=== PATIENT | female | born 1985 | race African-American/Black ===

== ENCOUNTER 2021-03-04 10:00 | Emergency (ER) | payer BC, SELFPAY ==
[2021-03-04 10:14] VITALS: BP 136/82; PULSE 86; RESP 16; TEMP 37.8; O2SAT 100
--- NOTE | 2021-03-04 11:08 | ED.DENTAL ---
HPI - Dental/Oral General Chief complaint: Dental/Oral Stated complaint: swollen right side of face Time Seen by Provider: 03/04/21 10:55 Source: patient and RN notes reviewed Mode of arrival: ambulatory Limitations: no limitations History of Present Illness HPI Narrative: Patient presents today complaining of right upper dental pain and facial swelling. Pain started 4 days ago and swelling to the face started 2 days ago. States she knows she has 2 cracked teeth that need to be extracted. She did have an abscess to this area 3 weeks ago and was treated with 10 days of amoxicillin that did help at the time to resolve the infection. She currently rates her pain 10/10 and has been taking Tylenol with mild relief. Patient cannot take NSAIDs due to peptic ulcers. MD Complaint: tooth pain Related Data Allergies Allergy/AdvReac Type Severity Reaction Status Date / Time NSAIDS (Non-Steroidal AdvReac Ulcers Verified 03/04/21 10:36 Anti-Inflamma Review of Systems Review of Systems: CONSTITUTIONAL: Denies body aches, fever, chills, or sweats. EYES: Denies visual changes, redness, or discharge. ENT: Denies rhinorrhea, congestion, sore throat, or otalgia.+ Tooth pain and facial swelling CARDIOVASCULAR: Denies chest pain, palpitations, or edema. RESPIRATORY: Denies cough or dyspnea. GASTROINTESTINAL: Denies abdominal pain, nausea, vomiting, or diarrhea. GENITOURINARY: Denies dysuria or hematuria. SKIN: Denies rash, itching, or wounds. MUSCULOSKELETAL: Denies back pain, joint pain, or myalgia. NEUROLOGIC: Denies headache, numbness, tingling, or weakness. PSYCH: Denies depression or anxiety. PMFSH Comments At time of signature, I have reviewed and agree with nursing past medical, surgical, social and family history unless otherwise noted. Please see nursing chart for further information. There is no relevant family history pertinent to the presenting complaint Exam Narrative: GENERAL: Well-appearing, well-nourished, and in no acute distress. HEAD: Normocephalic, atraumatic. EYES: EOMI. No redness or drainage. Conjunctivae normal. ENT: Mucous membranes pink and moist. Nares clear. No rhinorrhea. TMs normal bilaterally. Throat normal. Uvula midline. Teeth 1 through 4 are broken off at the gumline and brown or black in color. No obvious periapical abscess. Moderate swelling to the right upper jawline. NECK: Normal AROM. Supple. No lymphadenopathy. CHEST: No respiratory distress. Clear to auscultation. HEART: Regular rate and rhythm. No murmur appreciated. Normal peripheral pulses. EXTREMITIES: Normal range of motion. No edema. SKIN: Warm, dry, no rash. Capillary refill normal. Normal skin turgor. NEURO: No focal deficits. Alert and oriented x3. Gait steady. PSYCH: Normal affect. No signs of depression or anxiety. Course Vital Signs Vital signs: Vital Signs Temperature 100.0 F H 03/04/21 10:14 Pulse Rate 86 03/04/21 10:14 Respiratory Rate 16 03/04/21 10:14 Blood Pressure 136/82 03/04/21 10:14 Pulse Oximetry 100 03/04/21 10:14 Temperature 100.0 F H 03/04/21 10:14 Pulse Rate 86 03/04/21 10:14 Respiratory Rate 16 03/04/21 10:14 Blood Pressure 136/82 03/04/21 10:14 Pulse Oximetry 100 03/04/21 10:14 Reviewed. Pt has been instructed to follow up with her PCP regarding her elevated blood pressure today. MDM - Dental/Oral Differential Diagnosis Differential diagnosis: Likely gingival abscess, dental caries, toothache, dental abscess and fracture of tooth Critical Care Time Critical Care Time Critical Care Time: No Discharge Plan Discharge Clinical Impression: Dental abscess Patient Disposition: Home, Self-Care Condition: Stable Instructions: Antibiotic Form, Dental Abscess (ED) Additional Instructions: Please take the clindamycin and prednisone as prescribed. Please follow-up with a dentist as soon as possible for further treatment. If your symptoms worsen, please
== END 2021-03-04 11:14 | disposition home or self-care (01) ==
PROVIDERS: Emergency Provider Nurse Practitioner; PCP Internal Medicine
DX: K04.7 Periapical abscess without sinus (principal)
CPT/HCPCS: 99203; G0463